=== PATIENT | male | born 1990 | race Caucasian/White ===

== ENCOUNTER 2017-10-31 17:25 | Emergency (ER) | payer BC, MEDICAID ==
[~2017-10-31] VITALS: Ht 188 cm; Wt 76.8 kg
[~2017-10-31 17:25] MED LIST: NAPR-56 PO
[2017-10-31] MEDS ORDERED: NAPR-1154 PO (19:04)
[2017-10-31 19:08] VITALS: BP 155/85
== END 2017-10-31 19:31 | disposition home or self-care (01) ==
LOC: ER 17:26
DX: M79.672 Pain in left foot (principal); I10 Essential (primary) hypertension; G89.29 Other chronic pain; W23.0XXA Caught, crushed, jammed, or pinched between moving objects, initial encounter; Y93.55 Activity, bike riding; Y92.413 State road as the place of occurrence of the external cause; Y99.9 Unspecified external cause status
CPT/HCPCS: 73610; 73630; 99284; A6449